=== PATIENT | male | born 1995 | race Caucasian/White ===

== ENCOUNTER → 2017-05-23 | Outpatient (CLI) | payer OTHER ==
--- NOTE | 2017-05-31 07:56 | SLEEPMSLT ---
DATE OF PROCEDURE: 05/23/2017 REFERRING PHYSICIAN: Myself, Dr. Roxy Zuniga. INTERPRETATION: Overnight polysomnography was performed for evaluation of excessive daytime sleepiness and document adequate sleep time before multiple sleep latency test. A total of 8 hours and 36 minutes of data was reviewed with total sleep time 473.5 minutes. Normal sleep onset latency and sleep efficiency. There was no significant sleep disordered breathing. No respiratory events were noted. Respiratory effort related arousal index was 0.9 per hour and periodic limb movements of sleep index was 0.5 per hour. EEG remained normal throughout. EKG revealed frequent PAC. Oxygen saturation remained 93% and above throughout this study. Mild - moderate snoring was observed throughout the study. CONCLUSION: Primary snoring, no polysomnographic evidence of sleep apnea at this time. MULTIPLE SLEEP LATENCY TEST: DATE: May 24, 2017 INTERPRETATION: After overnight polysomnography, a multiple sleep latency test was performed. The patient was given four nap opportunities. Sleep onset latency was 3.5, 2.5, 3.5 and 5.5 minutes respectively. The patient achieved REM sleep in two of his naps. CONCLUSION: This is an abnormal multiple sleep latency test consistent with pathologic sleepiness such as seen in narcolepsy. Clinical correlation is recommended.
[2017-06-02 13:54] LABS: SUMMARY SEE SEPARATE REPORT
== END ==
LOC: M SLEEP 19:54
PROVIDERS: ATTEND Psychiatry & Neurology Neurology
DX: G47.419 Narcolepsy without cataplexy (principal); G47.10 Hypersomnia, unspecified